=== PATIENT | male | born 1975 | race American Indian/Alaskan Native ===

== ENCOUNTER 2017-11-20 11:26 | Day surgery (SDC) | payer MEDICAID, OTHER ==
[~2017-11-20 11:26] MED LIST: Propofol 200 MG/20 ML SDV ONE
--- NOTE | 2017-11-20 11:46 | PCM.PREANE ---
Preanesthetic Assessment - Anesthesia/Transfusion/Family Hx Anesthesia History: Prior Anesthesia Without Reaction Family History of Anesthesia Reaction: No Transfusion History: No Prior Transfusion(s) Intubation History: Unknown - Review of Systems General: No Symptoms Pulmonary: No Symptoms Cardiovascular: No Symptoms Gastrointestinal: Other (hematemesis) Neurological: No Symptoms Other: Reports: None - Physical Assessment Height: 1.78 m Weight: 85.275 kg ASA Class: 2 Mental Status: Alert & Oriented x3 Airway Class: Mallampati = 2 Dentition: Reports: Missing Tooth/Teeth (upper front incisor) Thyro-Mental Finger Breadths: 3 Mouth Opening Finger Breadths: 3 ROM/Head Extension: Full Lungs: Clear to Auscultation, Normal Respiratory Effort Cardiovascular: Regular Rate, Regular Rhythm - Allergies Allergies/Adverse Reactions: Allergies Allergy/AdvReac Type Severity Reaction Status Date / Time No Known Allergies Allergy Verified 11/18/17 10:33 - Blood Blood Available: No - Anesthesia Plan Pre-Op Medication Ordered: None - Acknowledgements Anesthesia Type Planned: MAC Pt an Appropriate Candidate for the Planned Anesthesia: Yes Alternatives and Risks of Anesthesia Discussed w Pt/Guardian: Yes Pt/Guardian Understands and Agrees with Anesthesia Plan: Yes PreAnesthesia Questionnaire HEENT History: Reports: Other (See Below) Other HEENT History: wears glasses, Cardiovascular History: Reports: Hypertension, Other (See Below) Other Cardiovascular History: murmur as a baby Respiratory History: Reports: Other (See Below) Other Respiratory History: childhood asthma Gastrointestinal History: Reports: GERD, Helicobacter Pylori Psychiatric History: Reports: Anxiety, Suicide Attempt, Other (See Below) (h/o alchohol abuse until 5 months ago) Endocrine/Metabolic History: Reports: Diabetes, Type II Other Endocrine/Metabolic History: not on medication "in remission" has lost weight - Past Surgical History Head Surgeries/Procedures: Reports: None HEENT Surgical History: Reports: Tonsillectomy Musculoskeletal Surgical History: Reports: Shoulder Surgery Other Musculoskeletal Surgeries/Procedures:: shoulder surgery - SUBSTANCE USE Smoking Status *Q: Current Some Day Smoker (quit 5 months ago) Recreational Drug Type: Reports: Marijuana/Hashish - HOME MEDS Home Medications: Home Meds Amoxicillin 500 mg PO BID 11/18/17 [History] Clarithromycin 500 mg PO BID 11/18/17 [History] Lansoprazole [Prevacid] 30 mg PO BID 11/18/17 [History] Losartan Potassium 100 mg PO DAILY 11/18/17 [History] - CURRENT (IN HOUSE) MEDS Current Meds: Current Medications Discontinued Medications Lactated Ringer's (Ringers, Lactated) 1,000 mls @ 125 mls/hr IV ASDIRECTED GIOVANA Propofol (Diprivan 20 Ml) Confirm Administered Dose 400 mg .ROUTE .STK-MED ONE Stop: 11/20/17 08:25
[2017-11-20] MEDS ORDERED: Lidocaine 2% 5 ML SDV ONE (11:59)
--- NOTE | 2017-11-20 12:27 | PCM.OPNOTE ---
- General Post-Op/Procedure Note Date of Surgery/Procedure: 11/20/17 Operative Procedure(s): Esophagogastroduodenoscopy with duodenal and gastric biopsies Pre Op Diagnosis: Hematemesis. History of H. pylori gastritis. Post-Op Diagnosis: Acute and chronic duodenitis and gastritis Anesthesia Technique: MAC (ASA II) Primary Surgeon: Joseph Rogers Condition: Good Free Text/Narrative:: Dictation [id number] CPT CODE [id number]
[2017-11-20] MEDS ORDERED: Lactated Ringers 1,000 ML IV SCH (12:30)
--- NOTE | 2017-11-20 17:12 | OR ---
SURGEON: Joseph Rogers M.D. DATE OF PROCEDURE: 11/20/2017 OPERATION PERFORMED: Esophagogastroduodenoscopy with gastric and duodenal biopsies. ANESTHESIA: MAC. ASA CLASSIFICATION: II. PREOPERATIVE DIAGNOSES: 1. Recurrent hematemesis. 2. History of Helicobacter pylori. POSTOPERATIVE DIAGNOSIS: Moderate gastritis and duodenitis. DESCRIPTION OF PROCEDURE: The patient was taken to the endoscopy room, positioned on the endoscopy table in the left lateral decubitus position. Time-out was called for appropriate identification of patient and procedure. Monitored anesthesia care was provided. The bite block was placed between the patient's teeth. The gastroscope was then inserted through the bite block and advanced without difficulty through the esophagus and stomach into the duodenum where examination was carried out in a retrograde fashion. The duodenum shows [id number] acute inflammatory changes. Biopsies were obtained. The gastroscope was withdrawn into the stomach which also shows a moderate acute gastritis. Antral biopsies were obtained to look for the presence of Helicobacter pylori. The gastroscope was then retroflexed to visualize the proximal stomach. No hiatal hernia was noted. No ulcers were noted proximally. The gastroscope was then straightened and slowly withdrawn. The GE junction was well defined and shows no acute inflammatory changes or ulcerations. The esophagus demonstrated good contractility. The vocal cords were visualized as the scope had been inserted, noted to move symmetrically. No vocal cord lesions were identified. The gastroscope was then removed with the patient having tolerated the procedure well. He was taken to recovery room in stable condition. RJ PARTIDA /[id number]
[2017-11-21] MEDS ORDERED: Lactated Ringers 1,000 ML IV SCH (10:00)
== END 2017-11-20 12:56 | disposition home or self-care (01) ==
LOC: MW.SDS 11:26
PROVIDERS: ATTEND Surgery
DX: K29.50 Unspecified chronic gastritis without bleeding (principal); K29.80 Duodenitis without bleeding; I10 Essential (primary) hypertension; K21.9 Gastro-esophageal reflux disease without esophagitis; F41.9 Anxiety disorder, unspecified; E11.9 Type 2 diabetes mellitus without complications; Z87.891 Personal history of nicotine dependence; Z91.5 Personal history of self-harm; Z90.89 Acquired absence of other organs; Z79.899 Other long term (current) drug therapy; Z98.890 Other specified postprocedural states
CPT/HCPCS: 00731; 88305; 88312; J2704

== ENCOUNTER 2019-01-10 06:56 | Day surgery (SDC) | payer OTHER ==
[2019-01-10] MEDS ORDERED: Lactated Ringers 1,000 ML IV SCH ×2 (07:00→12:30)
--- NOTE | 2019-01-10 08:30 | PCM.PREANE ---
Preanesthetic Assessment - Anesthesia/Transfusion/Family Hx Anesthesia History: Prior Anesthesia Without Reaction Family History of Anesthesia Reaction: No Transfusion History: No Prior Transfusion(s) Intubation History: Unknown - Review of Systems General: No Symptoms Pulmonary: No Symptoms Cardiovascular: No Symptoms Neurological: No Symptoms Other: Reports: None - Physical Assessment NPO Status Date: 01/09/19 NPO Status Time: 23:00 O2 Sat by Pulse Oximetry: 96 Respiratory Rate: 16 Vital Signs: Last Vital Signs Temp 97.9 F 01/10/19 07:20 Pulse 56 L 01/10/19 07:20 Resp 16 01/10/19 07:20 BP 161/99 H 01/10/19 07:20 Pulse Ox 96 01/10/19 07:20 Height: 5 ft 10 in Weight: 100.698 kg ASA Class: 2 Mental Status: Alert & Oriented x3 Airway Class: Mallampati = 1 Dentition: Reports: Broken Tooth/Teeth, Missing Tooth/Teeth ROM/Head Extension: Full Lungs: Clear to Auscultation, Normal Respiratory Effort Cardiovascular: Irregular Rhythm - Lab Values: Laboratory Last Values POC Glucose 107 mg/dL (60-110) 01/10/19 07:35 - Allergies Allergies/Adverse Reactions: Allergies Allergy/AdvReac Type Severity Reaction Status Date / Time No Known Allergies Allergy Verified 01/06/19 13:56 - Blood Blood Available: No - Anesthesia Plan Pre-Op Medication Ordered: None - Acknowledgements Anesthesia Type Planned: General Anesthesia Pt an Appropriate Candidate for the Planned Anesthesia: Yes Alternatives and Risks of Anesthesia Discussed w Pt/Guardian: Yes Pt/Guardian Understands and Agrees with Anesthesia Plan: Yes Additional Comments: PMH: gerd/gastritis, DM2, HLD, htn-off meds x 1 yr, Asthma PX: irreg hr- prob sr with frequent ectopy PLAN: GA-LMA, R lat decub position, aleman bag for positioning PreAnesthesia Questionnaire HEENT History: Reports: Other (See Below) Other HEENT History: needs glasses but doesn't have any Cardiovascular History: Reports: High Cholesterol, Hypertension Other Cardiovascular History: no medications Respiratory History: Reports: Asthma Other Respiratory History: rarely uses Albuterol inhaler Gastrointestinal History: Reports: GERD Other Gastrointestinal History: no medications Musculoskeletal History: Reports: Fracture Other Musculoskeletal History: hx of fx leg Psychiatric History: Reports: Anxiety Other Psychiatric History: no medications Endocrine/Metabolic History: Reports: Diabetes, Type II, Obesity/BMI 30+ Other Endocrine/Metabolic History: diabetes is diet controlled - Past Surgical History GI Surgical History: Reports: EGD Musculoskeletal Surgical History: Reports: Shoulder Surgery Other Musculoskeletal Surgeries/Procedures:: possibly ORIF- unsure of hardware - SUBSTANCE USE Smoking Status *Q: Former Smoker Tobacco Use Within Last Twelve Months: No Days Per Week of Alcohol Use: 1 Recreational Drug Use History: No - HOME MEDS Home Medications: Home Meds Albuterol Sulfate [Albuterol Sulfate Hfa] 1 puff INH ASDIRECTED PRN 01/06/19 [ History] - CURRENT (IN HOUSE) MEDS Current Meds: Current Medications Lactated Ringer's (Ringers, Lactated) 1,000 mls @ 125 mls/hr IV ASDIRECTED [facility] Last Admin: 01/10/19 07:30 Dose: 125 mls/hr
[2019-01-10] MEDS ORDERED: Lidocaine 2% 5 ML SDV ONE (09:52)
[2019-01-10] MEDS ORDERED: Propofol 200 MG/20 ML SDV ONE (09:54)
[2019-01-10] MEDS ORDERED: Lidocaine 1% 20 ML MDV ONE (09:54)
[2019-01-10] MEDS ORDERED: Bupivacaine 0.5% 10 ML SDV ONE (09:54)
[2019-01-10] MEDS ORDERED: fentaNYL 100 MCG/2 ML SDV ONE ×2 (09:55→11:41)
[2019-01-10] MEDS ORDERED: Midazolam 1 MG/ML 2 ML SDV ONE (09:55)
[2019-01-10] MEDS ORDERED: Acetaminophen/HYDROcodone 325-5 MG Tab PO PRN (12:20)
[2019-01-10] MEDS ORDERED: Morphine 10 MG/ML Syringe IVPUSH PRN (12:20)
[2019-01-10] MEDS ORDERED: Ondansetron 4 MG/2 ML SDV IVPUSH PRN (12:20)
[2019-01-10] MEDS ORDERED: Acetaminophen 325 MG Tab PO PRN (12:20)
--- NOTE | 2019-01-10 12:23 | PCM.OPNOTE ---
- General Post-Op/Procedure Note Date of Surgery/Procedure: 01/10/19 Operative Procedure(s): Excision 9 cm x 10 cm left upper back mass Pre Op Diagnosis: Enlarging left upper back mass Post-Op Diagnosis: Same Anesthesia Technique: General LMA (ASA II) Primary Surgeon: Joseph Rogers Fluid Replacement, Intraop: 500 EBL in mLs: 5 Condition: Good Free Text/Narrative:: DICTATION [id number] CPT CODE [id number]
--- NOTE | 2019-01-10 12:51 | PCM.POSTAN ---
POST ANESTHESIA ASSESSMENT - MENTAL STATUS Mental Status: Alert, Oriented - RESPIRATORY Respiratory Status: Respiratory Rate WNL, Airway Patent, O2 Saturation Stable - CARDIOVASCULAR CV Status: Pulse Rate WNL, Blood Pressure Stable - GASTROINTESTINAL GI Status: No Symptoms - POST OP HYDRATION Hydration Status: Adequate & Stable
--- NOTE | 2019-01-10 13:22 | PCM48HPAN ---
Post Anesthesia Note - EVALUATION WITHIN 48HRS OF ANESTHETIC Vital Signs in Normal Range: Yes Patient Participated in Evaluation: Yes Respiratory Function Stable: Yes Airway Patent: Yes Cardiovascular Function Stable: Yes Hydration Status Stable: Yes Pain Control Satisfactory: Yes Nausea and Vomiting Control Satisfactory: Yes Mental Status Recovered: Yes Resp Rate: 15
[2019-01-10] MEDS ORDERED: Ketorolac 10 MG Tab PO ONE (13:23)
[2019-01-10] MEDS ORDERED: Ketorolac 30 MG/ML SDV ONE (13:30)
--- NOTE | 2019-01-11 08:45 | OR ---
SURGEON: Joseph Rogers M.D. DATE OF PROCEDURE: 01/10/2019 PROCEDURE PERFORMED: Excision of enlarging left upper back mass. ANESTHESIA: General endotracheal. ASA CLASSIFICATION: II. PREOPERATIVE DIAGNOSIS: Enlarging left upper back mass. POSTOPERATIVE DIAGNOSIS: Enlarging left upper back mass. ESTIMATED BLOOD LOSS: 5 mL. INTRAOPERATIVE FLUID REPLACEMENT: 500 mL of crystalloid. DESCRIPTION OF PROCEDURE: The patient was taken to the operating room, placed on the operating table in the supine position. Time-out was called for appropriate identification of the patient and procedure. Following satisfactory attainment of general endotracheal anesthesia, the patient was positioned in the right lateral decubitus position on the beanbag and the beanbag was deflated. Axillary roll was placed in the right axilla. Care was taken to pad all bony prominences. With that, thigh-high TEDs and sequential compression boots had been placed prior to the patient entering the operating room. The surgical site had also been marked prior to the patient entering the operating room. The skin was prepped with DuraPrep solution. Sterile drapes were applied. The skin incision was marked out and infiltrated with 10 mL of 0.5% Marcaine solution. The skin incision was made and deepened through the subcutaneous tissue obtaining hemostasis with the use of electrocautery. Dissection was carried down to the mass, which was now able to be excised using electrocautery. Small bleeding sites were electrocoagulated. Once the mass was removed, the wound was inspected for hemostasis, and small bleeding sites were electrocoagulated. The wound was irrigated with sterile saline solution. The incision was then closed in 2 layers approximating the subcutaneous tissue with 3-0 Vicryl and the skin with subcuticular 4-0 Monocryl. The incision was Steri-Stripped and dressed with a sterile Tegaderm pad. Specimen was measured in the operating room and measured 9 x 10 cm. The patient tolerated the procedure well. Prior to emergence from anesthesia, he was placed on the transfer cart in the supine position. Following emergence from anesthesia and extubation, the patient was taken to the recovery room in stable condition. RJ PARTIDA /[id number]
== END 2019-01-10 14:30 | disposition home or self-care (01) ==
LOC: MW.SDS 06:56
PROVIDERS: ATTEND Surgery
DX: D17.1 Benign lipomatous neoplasm of skin and subcutaneous tissue of trunk (principal); I10 Essential (primary) hypertension; E11.9 Type 2 diabetes mellitus without complications; J45.909 Unspecified asthma, uncomplicated; E78.00 Pure hypercholesterolemia, unspecified; E66.9 Obesity, unspecified; Z68.31 Body mass index [BMI] 31.0-31.9, adult; Z87.891 Personal history of nicotine dependence
CPT/HCPCS: 21931; 82962; A9270; J1885; J2001; J2250; J2270; J2704; J3010; J3490; J7120; 00300

== ENCOUNTER 2019-01-11 11:11 | Day surgery (SDC) | payer OTHER ==
[2019-01-11] MEDS ORDERED: Lactated Ringers 1,000 ML IV SCH ×2 (11:15→13:15)
[2019-01-11] MEDS ORDERED: Midazolam 1 MG/ML 2 ML SDV ONE (11:17)
[2019-01-11] MEDS ORDERED: fentaNYL 100 MCG/2 ML SDV ONE ×2 (11:18→12:06)
[2019-01-11] MEDS ORDERED: Lidocaine 2% 5 ML SDV ONE (11:19)
[2019-01-11] MEDS ORDERED: Propofol 200 MG/20 ML SDV ONE (11:20)
--- NOTE | 2019-01-11 11:36 | PCM.PREANE ---
Preanesthetic Assessment - Anesthesia/Transfusion/Family Hx Anesthesia History: Prior Anesthesia Without Reaction Family History of Anesthesia Reaction: No Transfusion History: No Prior Transfusion(s) Intubation History: Unknown - Review of Systems General: No Symptoms Pulmonary: No Symptoms Cardiovascular: No Symptoms Gastrointestinal: No Symptoms Neurological: No Symptoms Other: Reports: None - Physical Assessment NPO Status Date: 01/11/19 NPO Status Time: 10:00 Height: 5 ft 10 in Weight: 99.79 kg ASA Class: 1 Mental Status: Alert & Oriented x3 Airway Class: Mallampati = 1 Dentition: Reports: Broken Tooth/Teeth ROM/Head Extension: Full Lungs: Clear to Auscultation, Normal Respiratory Effort Cardiovascular: Regular Rate, Regular Rhythm - Allergies Allergies/Adverse Reactions: Allergies Allergy/AdvReac Type Severity Reaction Status Date / Time No Known Allergies Allergy Verified 01/11/19 11:33 - Blood Blood Available: No - Anesthesia Plan Pre-Op Medication Ordered: None - Acknowledgements Anesthesia Type Planned: General Anesthesia Pt an Appropriate Candidate for the Planned Anesthesia: Yes Alternatives and Risks of Anesthesia Discussed w Pt/Guardian: Yes Pt/Guardian Understands and Agrees with Anesthesia Plan: Yes Additional Comments: full stomach, GET RSI PreAnesthesia Questionnaire HEENT History: Reports: Other (See Below) Other HEENT History: needs glasses but doesn't have any Cardiovascular History: Reports: High Cholesterol, Hypertension Other Cardiovascular History: no medications Respiratory History: Reports: Asthma Other Respiratory History: rarely uses Albuterol inhaler Gastrointestinal History: Reports: GERD Other Gastrointestinal History: no medications Musculoskeletal History: Reports: Fracture Other Musculoskeletal History: hx of fx leg Psychiatric History: Reports: Anxiety Other Psychiatric History: no medications Endocrine/Metabolic History: Reports: Diabetes, Type II, Obesity/BMI 30+ Other Endocrine/Metabolic History: diabetes is diet controlled - Past Surgical History Head Surgeries/Procedures: Reports: None HEENT Surgical History: Reports: Tonsillectomy GI Surgical History: Reports: EGD Musculoskeletal Surgical History: Reports: Shoulder Surgery, Other (See Below) Other Musculoskeletal Surgeries/Procedures:: possibly ORIF- unsure of hardware, removal of back mass - SUBSTANCE USE Smoking Status *Q: Never Smoker Recreational Drug Use History: Yes Recreational Drug Type: Reports: Marijuana/Hashish - HOME MEDS Home Medications: Home Meds Albuterol Sulfate [Albuterol Sulfate Hfa] 1 puff INH ASDIRECTED PRN 01/06/19 [ History] - CURRENT (IN HOUSE) MEDS Current Meds: Current Medications Lactated Ringer's (Ringers, Lactated) 1,000 mls @ 125 mls/hr IV ASDIRECTED GIOVANA Discontinued Medications Fentanyl (Sublimaze) Confirm Administered Dose 100 mcg .ROUTE .STK-MED ONE Stop: 01/11/19 11:19 Lidocaine (Xylocaine-Mpf 2%) Confirm Administered Dose 5 ml .ROUTE .STK-MED ONE Stop: 01/11/19 11:20 Midazolam HCl (Versed 1 Mg/Ml) Confirm Administered Dose 2 mg .ROUTE .STK-MED ONE Stop: 01/11/19 11:18 Propofol (Diprivan 20 Ml) Confirm Administered Dose 200 mg .ROUTE .STK-MED ONE Stop: 01/11/19 11:21
[2019-01-11] MEDS ORDERED: Ondansetron 4 MG/2 ML SDV ONE ×2 (12:39)
[2019-01-11] MEDS ORDERED: Morphine 4 MG/ML Syringe IVPUSH PRN (13:01)
[2019-01-11] MEDS ORDERED: Acetaminophen/HYDROcodone 325-5 MG Tab PO PRN (13:01)
--- NOTE | 2019-01-11 13:04 | PCM.OPNOTE ---
- General Post-Op/Procedure Note Date of Surgery/Procedure: 01/11/19 Operative Procedure(s): Evacuation of surgical site hematoma Findings: 200 cc hematoma Pre Op Diagnosis: Surgical site hematoma Post-Op Diagnosis: Same Anesthesia Technique: General ET Tube (ASA IE) Primary Surgeon: Joseph Rogers Fluid Replacement, Intraop: 1,000 EBL in mLs: 10 Surgical Drain/Tube Type: Chuy Drain Condition: Good Free Text/Narrative:: DICTATION [id number] CPT CODE [id number]
[2019-01-11] MEDS ORDERED: Ketorolac 30 MG/ML SDV IVPUSH ONE (14:38)
--- NOTE | 2019-01-11 15:12 | OR ---
SURGEON: Joseph Rogers M.D. DATE OF PROCEDURE: 01/11/2019 PROCEDURE PERFORMED: Exploration of surgical wound, evacuation of hematoma, and ligation of bleeding sites. ANESTHESIA: General endotracheal. ASA CLASSIFICATION: IE. PREOPERATIVE DIAGNOSIS: Postoperative wound hematoma. POSTOPERATIVE DIAGNOSIS: Postoperative wound hematoma. ESTIMATED BLOOD LOSS: 10 mL plus approximately 200 mL of clotted blood. INTRAOPERATIVE FLUID REPLACEMENT: 1000 mL of crystalloid. DESCRIPTION OF PROCEDURE: The patient was taken to the operating room and placed on the operating table in the supine position. Time-out was called for appropriate identification of the patient and procedure. Sequential compression boots were placed. Following satisfactory attainment of general endotracheal anesthesia, the patient was positioned in the right lateral decubitus position on the beanbag. The dressing was removed, and the skin was prepped with Betadine solution and sterile drapes were applied. The incision was opened up, and there was a large amount of hematoma present. The hematoma was completely evacuated. The wound was inspected for hemostasis and small bleeding sites were either electrocoagulated or suture ligated with 3-0 Vicryl ties. The wound was again inspected for hemostasis and then irrigated with several 100 mL of saline solution. No other bleeding sites were identified. A large Chuy drain was brought to the operating table. This was placed through a separate stab incision into the wound and cut to appropriate length. This was sutured to the skin with 2-0 silk. The incision was again inspected for hemostasis and no other bleeding was noted. The subcutaneous tissue was closed with running 3-0 Vicryl. Skin edges were reapproximated with running locked 3-0 nylon. Sterile pressure dressing was applied and taped securely in place with Mefix. Sponge, needle, and instrument counts were all correct. The patient tolerated the procedure well. He was now taken off the beanbag and placed on the transfer cart. Following satisfactory emergence from anesthesia, the patient was extubated and taken to recovery room in a stable condition. RJ / JAQUAN /[id number]
--- NOTE | 2019-01-11 15:12 | PCM48HPAN ---
Post Anesthesia Note - EVALUATION WITHIN 48HRS OF ANESTHETIC Vital Signs in Normal Range: Yes Patient Participated in Evaluation: Yes Respiratory Function Stable: Yes Airway Patent: Yes Cardiovascular Function Stable: Yes Hydration Status Stable: Yes Pain Control Satisfactory: Yes Nausea and Vomiting Control Satisfactory: Yes Mental Status Recovered: Yes Resp Rate: 22
== END 2019-01-11 15:10 | disposition home or self-care (01) ==
LOC: MW.SDS 11:11
PROVIDERS: ATTEND Surgery
DX: L76.32 Postprocedural hematoma of skin and subcutaneous tissue following other procedure (principal); I10 Essential (primary) hypertension; E11.9 Type 2 diabetes mellitus without complications; J45.909 Unspecified asthma, uncomplicated; E66.9 Obesity, unspecified; E78.00 Pure hypercholesterolemia, unspecified
CPT/HCPCS: 10140; A9270; J1885; J2001; J2250; J2405; J2704; J3010; J7120; 00400